=== PATIENT | male | born 1985 | race African-American/Black ===

== ENCOUNTER 2023-07-10 17:18 | Emergency (ER) | payer MEDICARE, OTHER ==
[~2023-07-10] VITALS: Ht 177.8 cm; Wt 50.0 kg
[2023-07-10 21:03] VITALS: BP 102/72; PULSE 110; RESP 14; TEMP 97.4; O2SAT 100
[2023-07-11] MEDS ORDERED: TETRAcaine 0.5% ophthalmic drops 15ml RIGHTEYE ONE (01:25)
[2023-07-11] MEDS ORDERED: proparacaine 0.5% ophthalmic drops 15ml EACHEYE ONE (01:45)
[2023-07-11] MEDS ORDERED: TETRACAINE 0.5% 4 ML OPHTHALMIC DROPS RIGHTEYE ONE (01:55)
[2023-07-11] MEDS ORDERED: POLOS RIGHTEYE (02:08)
[2023-07-11] MEDS ORDERED: polymyxin B sulf/tmp ophth drops 10ml RIGHTEYE SCH (08:00)
== END 2023-07-11 02:17 | disposition home or self-care (01) ==
LOC: ER 17:21
DX: S05.01XA Injury of conjunctiva and corneal abrasion without foreign body, right eye, initial encounter (principal); X58.XXXA Exposure to other specified factors, initial encounter; Y93.89 Activity, other specified; Y92.89 Other specified places as the place of occurrence of the external cause; Y99.8 Other external cause status
CPT/HCPCS: 99283